=== PATIENT | male | born 1940 | race Caucasian/White ===

== ENCOUNTER 2017-04-18 01:00 | Inpatient (IN) | payer OTHER ==
[2017-04-18] MEDS ORDERED: NS 1,000 ML IV ONE (01:30)
--- NOTE | 2017-04-18 01:58 | CPEKG ---
Heart Rate: 55 RR Interval: 1091 P-R Interval: 184 QRSD Interval: 152 QT Interval: 468 QTC Interval: 448 P Apache: 63 QRS Apache: 123 T Wave Apache: 78 EKG Severity - ABNORMAL ECG - EKG Impression: SINUS RHYTHM EKG Impression: RBBB AND LPFB EKG Impression: INFERIOR INJURY, PROBABLE EARLY ACUTE INFARCT EKG Impression: PROBABLE LATERAL INFARCT, OLD Electronically Signed By: Jero Francisco 18-Apr-2017 02:11:00
[2017-04-18] MEDS ORDERED: ASPIRIN 81 MG CHEWABLE TAB ONE (02:01)
[2017-04-18] MEDS ORDERED: ASPIRIN 81 MG CHEWABLE TAB PO ONE (02:03)
--- NOTE | 2017-04-18 02:09 | EDPHY ---
H & P Stated Complaint: SUDDEN ONSET OF HEADACHE WOKE FROM SLEEP PAIN IN BETWEEN SHOULDER BLADES Time Seen by Provider: 04/18/17 01:15 HPI/ROS: Chief Complaint: Back pain HPI: 76-year-old male with a history of hyperlipidemia, right bundle branch block in the past woke at 11 o'clock with pain between his shoulder blades. Patient states this started with a little bit of the pain in his head and then went down with shoulder blades. Is about a 7/10. There are no aggravating or alleviating factors. He has not had similar pain in the past. States he has a little bit of discomfort in his chest. Does not hurt to breathe. No recent lifting or traumatic injuries. No fevers or chills. No cough. No shortness of breath. Is not described as tearing. It is dull in nature. ROS: 10 point Review of Systems is negative except as noted in the HPI. PMH: Hyperlipidemia, right bundle branch block Social History: No smoking Family History: non-contributory Physical Exam: Gen: Awake, Alert, No Distress HEENT: Nose: no rhinorrhea Eyes: PERRLA, EOMI Mouth: Moist mucosa Neck: Supple, no JVD Chest: nontender, lungs clear to auscultation Heart: S1, normal, fixed split S2, no murmur Abd: Soft, non-tender, no guarding Back: no CVA tenderness, no midline tenderness Ext: no edema, non-tender Skin: no rash Neuro: CN II-XII intact, Sensation grossly intact, Strength 5/5 in bilateral upper and lower extremities - Personal History Current Tetanus/Diphtheria Vaccine: Yes Current Tetanus Diphtheria and Acellular Pertussis (TDAP): Yes - Medical/Surgical History Hx Asthma: No Hx Chronic Respiratory Disease: No Hx Diabetes: No Hx Cardiac Disease: No Hx Renal Disease: No Hx Cirrhosis: No Hx Alcoholism: No Hx HIV/AIDS: No Hx Splenectomy or Spleen Trauma: No Other PMH: GERD, LOWER LUMBAR BACK SURGERY - Social History Smoking Status: Never smoked Constitutional: Initial Vital Signs Temperature (C) 36.8 C 04/18/17 01:09 Heart Rate 75 04/18/17 01:09 Respiratory Rate 18 04/18/17 01:09 Blood Pressure 135/86 H 04/18/17 01:09 O2 Sat (%) 96 04/18/17 01:09 O2 Delivery Mode Nasal Cannula O2 (L/minute) 2 Allergies/Adverse Reactions: SEASONAL Allergy (Mild, Uncoded 05/31/12 11:17) Other-Enter Comments Home Medications: Medication Instructions Recorded Omeprazole [Prilosec 10 mg] 10 mg PO DAILY PRN 06/01/12 Japanese Professor Completed 06/01/12 06/01/12 Simvastatin [Zocor 20 mg] 20 mg PO DAILY18 06/01/12 Medical Decision Making - Diagnostics EKG Interpretation: ECG time 1:56 a.m. sinus rhythm with a rate of 55, there is a right bundle- branch block and a left posterior fascicular block. Patient has ST elevations in leads 2, 3, and AVF approximately 1-2 mm. There are reciprocal ST depression in V2 and V3. This is consistent with acute inferior PR ED Course/Re-evaluation: 0200 ECG noted positive for inferior STEMI. I have called a cardiac alert. Patient has been given 325 mg of aspirin. He has received morphine. 0204 I have discussed with Dr. Young, cardiology. He is on his way in with plan to take the patient to the slab puller. 0235 patient is still complaining of pain. Dr. Young is at the bedside. Awaiting the cath team to take him to the slab puller for PTCA. 0243 patient to slab puller Critical Care Time: I spent a total of 40 minutes of critical care time in obtaining history, performing a physical exam, bedside monitoring of interventions, collecting and interpreting tests and discussion with consultants but not including time spent performing procedures. - Data Points Laboratory Results: Laboratory Results 04/18/17 01:51 04/18/17 01:51 04/18/17 04/18/17 01:51 01:51 WBC 6.63 10^3/uL 10^3/uL (3.80-9.50) RBC 4.49 10^6/uL 10^6/uL (4.40-6.38) Hgb 14.2 g/dL g/dL (13.7-17.5) Hct 41.0 % % (40.0-51.0) MCV 91.3 fL fL (81.5-99.8) MCH 31.6 pg pg (27.9-34.1) MCHC 34.6 g/dL g/dL (32.4-36.7) RDW 12.6 % % (11.5-15.2) Plt Count 158 10^3/uL 10^3/uL (150-400) MPV 10.9 fL fL (8.7-11.7) Neut % (Auto) 58.4 % % (39.3-74.2) Lymph % (Auto) 26.5 % % (15.0-45.0) Gaines % (Auto) 9.0 % % (4.5-13.0) Eos % (Auto) 4.7 % % (0.6-7.6) Baso % (Auto) 1.1 % % (0.3-1.7) Nucleat RBC Rel Count 0.0 % % (0.0-0.2) Absolute Neuts (auto) 3.87 10^3/uL 10^3/uL (1.70-6.50) Absolute Lymphs (auto) 1.76 10^3/uL 10^3/uL (1.00-3.00) Absolute Monos (auto) 0.60 10^3/uL 10^3/uL (0.30-0.80) Absolute Eos (auto) 0.31 10^3/uL 10^3/uL (0.03-0.40) Absolute Basos (auto) 0.07 10^3/uL 10^3/uL (0.02-0.10) Absolute Nucleated RBC 0.00 10^3/uL 10^3/uL (0-0.01) Immature Gran % 0.3 % % (0.0-1.1) Immature Gran # 0.02 10^3/uL 10^3/uL (0.00-0.10) Sodium 141 mEq/L mEq/L (134-144) Potassium 4.0 mEq/L mEq/L (3.5-5.2) Chloride 105 mEq/L mEq/L (97-110) Carbon Dioxide 26 mEq/l mEq/l (22-31) Anion Gap 10 mEq/L mEq/L (8-16) BUN 32 mg/dL H mg/dL (7-23) Creatinine 1.2 mg/dL mg/dL (0.7-1.3) Estimated GFR 59 Glucose 102 mg/dL H mg/dL (70-100) Calcium 9.6 mg/dL mg/dL (8.5-10.4) Troponin I 0.093 ng/mL H ng/mL (0.000-0.034) Medications Given: Discontinued Medications Aspirin (Aspirin) 324 mg PO EDNOW ONE Stop: 04/18/17 02:04 Last Admin: 04/18/17 02:03 Dose: 324 mg Sodium Chloride (Ns) 1,000 mls @ 0 mls/hr IV ONCE ONE; Wide Open PRN Reason: Protocol Stop: 04/18/17 01:31 Last Admin: 04/18/17 01:47 Dose: 1,000 mls Morphine Sulfate (Morphine) 4 mg IVP ONCE ONE Stop: 04/18/17 01:31 Last Admin: 04/18/17 01:47 Dose: 4 mg Morphine Sulfate (Morphine) 4 mg IVP EDNOW ONE Stop: 04/18/17 02:18 Last Admin: 04/18/17 02:17 Dose: 4 mg Departure - Departure Disposition: To OP Cath/Surgery Clinical Impression: STEMI (ST elevation myocardial infarction) Condition: Serious Referrals: Rick Ritter MD [Primary Care Provider] - As per Instructions
[2017-04-18 02:13] LABS: % IMMATURE GRANULYOCYTES 0.3 % (0.0-1.1); ABSOLUTE IMMATURE GRANULOCYTES 0.02 10^3/uL (0.00-0.10); ADD DIFF? NO; ADD MORPH? NO; ADD SCAN? NO; ATYPICAL LYMPHOCYTE FLAG 0 (0-99); FRAGMENT RBC FLAG 0 (0-99); HEMOGLOBIN 14.2 g/dL (13.7-17.5); LEFT SHIFT FLG 0 (0-99); LIPEMIA HEMOLYSIS FLAG 90 (0-99); MEAN CELL HEMOGLOBIN 31.6 pg (27.9-34.1); MEAN CELL HEMOGLOBIN CONCENTR. 34.6 g/dL (32.4-36.7); MEAN CELL VOLUME 91.3 fL (81.5-99.8); MEAN PLATELET VOLUME 10.9 fL (8.7-11.7); PLATELET CLUMPS FLAG 20 (0-99); PLATELET COUNT 158 10^3/uL (150-400); RED BLOOD CELL COUNT 4.49 10^6/uL (4.40-6.38); RED CELL DISTRIBUTION WIDTH 12.6 % (11.5-15.2)
[2017-04-18 02:28] LABS: ANION GAP 10 mEq/L (8-16); CALCIUM 9.6 mg/dL (8.5-10.4); CARBON DIOXIDE 26 mEq/l (22-31); CHLORIDE 105 mEq/L (97-110); CREATININE 1.2 mg/dL (0.7-1.3); GLOMERULAR FILTRATION RATE 59; GLUCOSE 102 mg/dL (70-100); SODIUM 141 mEq/L (134-144)
[2017-04-18] MEDS ORDERED: MIDAZOLAM 2 MG/2 ML VIAL ONE (02:28)
[2017-04-18] MEDS ORDERED: fentaNYL 100 MCG/2 ML INJ ONE (02:28)
[2017-04-18] MEDS ORDERED: LIDOCAINE 1% 300 MG/30 ML SDV ONE (02:28)
[2017-04-18] MEDS ORDERED: IOPAMIDOL (ISOVUE-370) 150 ML BTL IV ONE ×2 (02:29→03:15)
[2017-04-18] MEDS ORDERED: BIVALIRUDIN 250 MG/5 ML VIAL IV ONE (02:29)
[2017-04-18] MEDS ORDERED: IOPAMIDOL (ISOVUE 370) 100 ML BTL IV ONE (02:32)
[2017-04-18 02:39] LABS: TROPONIN I 0.093 ng/mL (0.000-0.034)
[2017-04-18] MEDS ORDERED: ATROPINE SULFATE 1 MG/10 ML SYR ONE (03:09)
[2017-04-18] MEDS ORDERED: NITROGLYCERIN 1,500 MCG/15 ML VIAL MISC ONE (03:17)
[2017-04-18] MEDS ORDERED: CLOPIDOGREL BISULFATE 75 MG TAB ONE (03:47)
[2017-04-18] MEDS ORDERED: ATROPINE SULFATE 1 MG/10 ML SYR IVP PRN (04:02)
[2017-04-18] MEDS ORDERED: CLOPIDOGREL BISULFATE 75 MG TAB PO ONE (04:02)
[2017-04-18] MEDS ORDERED: ONDANSETRON 4 MG/2 ML VIAL IVP PRN (04:02)
[2017-04-18] MEDS ORDERED: TEMAZEPAM 15 MG CAP PO PRN (04:02)
[2017-04-18] MEDS ORDERED: LORazepam 2 MG/ML INJ IVP PRN (04:02)
[2017-04-18] MEDS ORDERED: FAMOTIDINE 20 MG/NACL/50 ML BAG IV ONE (04:14)
[2017-04-18 04:27] LABS: ALBUMIN 3.9 g/dL (3.5-5.0); BILIRUBIN,TOTAL 0.4 mg/dL (0.1-1.4); BILIRUBIN-CONJUGATED 0.4 mg/dL (0.0-0.5); TOTAL PROTEIN 6.3 g/dL (6.3-8.2)
--- NOTE | 2017-04-18 04:32 | GCON ---
[f rep st] CONSULTATION DATE OF CONSULTATION: 04/18/2017 CHIEF COMPLAINT: We have been asked by the emergency department to evaluate Mr. Ocampo with a chief c omplaint of chest pain. HISTORY OF PRESENT ILLNESS: Mr. Ocampo is a 76-year-old gentleman with risk factors including age and hyperlipidemia, who presents with a chief complaint of chest pain. The patient was in his usual sta te of health until 10 p.m. the evening of admission, when he began to experience chest pain. Chest p ain was described as an ache between his shoulder blades. The chest pain did not radiate and was not associated with nausea, vomiting, or diaphoresis. Patient initially tried to go to bed to see if hi s symptoms would improve but awoke at approximately 11 p.m. with continued symptoms of chest pain. Alexey gracia ended up taking an antireflux medication, as well as medicine he takes for leg cramps, without impr ovement in his symptoms. When his symptoms did not resolve, he presented to the emergency department for further evaluation. In the emergency department, he had an EKG performed, demonstrating inferio r ST-segment elevation. We were consulted to help in the further management of this patient. Jose Armando telles denies a previous history of coronary artery disease. He denies previous anginal-type symptoms. T here is no history of palpitations, orthopnea, or PND. PAST MEDICAL HISTORY: 1. Hyperlipidemia. 2. Gastroesophageal reflux disease. 3. Lumbosacral stenosis. 4. Benign prostatic hypertrophy. MEDICATIONS: Please see medicine reconciliation form. ALLERGIES: No known drug allergies. SOCIAL HISTORY: Patient lives with his . He does not smoke. He denies problems with alcohol. FAMILY HISTORY: Negative for early onset of coronary artery disease. REVIEW OF SYSTEMS: Ten-point review of systems is negative, except as noted in HPI. PHYSICAL EXAMINATION: GENERAL: The patient is resting in bed. He appears to be in moderate distres s. VITAL SIGNS: Temperature is afebrile, pulse is 58, blood pressure is 130/87, respiratory rate is 20, SaO2 is 96% on 2 L nasal cannula. HEENT: Normocephalic, atraumatic. Extraocular muscles intac t. NECK: No JVD. No bruits. LUNGS: Clear to auscultation bilaterally. CARDIOVASCULAR: Regular rate and rhythm. S1, S2. Grade 2/6 holosystolic murmur is noted at the left sternal border. ABDOME N: Obese, nontender. Normoactive bowel sounds. EXTREMITIES: No clubbing, cyanosis, or edema. SHASHANK RO: Patient is awake, alert, and oriented x3. The remainder of the physical exam was abbreviated se condary to acute nature of the patient's illness. LABORATORY: White blood cell count is 6.63, hemoglobin 14.2, hematocrit 41.0, platelet count 158. S odium 141, potassium 4.0, chloride 105, CO2 26, BUN 32, creatinine 1.2. Troponin 0.093. EKG demonst rates sinus rhythm with a right bundle branch block morphology, inferior ST-segment elevation with ri ghtward axis; intervals within normal limits. ASSESSMENT AND PLAN: Mr. Ocampo is a 76-year-old gentleman, who presents with an acute inferior ST-se gment-elevation myocardial infarction. Reviewed risks and benefits of cardiac catheterization with alisa gasca and his . Will arrange to have this performed emergently. /[id number]/MODL
--- NOTE | 2017-04-18 05:25 | CPEKG ---
Heart Rate: 62 RR Interval: 968 P-R Interval: 192 QRSD Interval: 150 QT Interval: 476 QTC Interval: 484 P Belmont: 76 QRS [place]: 125 T Wave [place]: -35 EKG Severity - ABNORMAL ECG - EKG Impression: SINUS RHYTHM EKG Impression: RBBB AND LPFB EKG Impression: LATERAL INFARCT, OLD EKG Impression: PRIOR ECG FROM EARLIER IN THE DAY WITH ACUTE ST ELEVATION TO THE INFERIOR LEADS Electronically Signed By: Colin Freeman 18-Apr-2017 08:31:30
[2017-04-18 06:04] LABS: % IMMATURE GRANULYOCYTES 0.4 % (0.0-1.1); ABSOLUTE IMMATURE GRANULOCYTES 0.03 10^3/uL (0.00-0.10); ADD DIFF? NO; ADD MORPH? NO; ADD SCAN? NO; ATYPICAL LYMPHOCYTE FLAG 0 (0-99); FRAGMENT RBC FLAG 0 (0-99); HEMATOCRIT 35.9 % (40.0-51.0); HEMOGLOBIN 12.2 g/dL (13.7-17.5); LEFT SHIFT FLG 0 (0-99); LIPEMIA HEMOLYSIS FLAG 90 (0-99); MEAN CELL HEMOGLOBIN 31.4 pg (27.9-34.1); MEAN CELL VOLUME 92.5 fL (81.5-99.8); MEAN PLATELET VOLUME 10.7 fL (8.7-11.7); PLATELET CLUMPS FLAG 0 (0-99); PLATELET COUNT 126 10^3/uL (150-400); RED BLOOD CELL COUNT 3.88 10^6/uL (4.40-6.38); RED CELL DISTRIBUTION WIDTH 12.8 % (11.5-15.2)
[2017-04-18 06:18] LABS: ANION GAP 6 mEq/L (8-16); CALCIUM 7.7 mg/dL (8.5-10.4); CARBON DIOXIDE 22 mEq/l (22-31); CHLORIDE 111 mEq/L (97-110); CHOLESTEROL 128 mg/dL (140-220); CREATININE 0.9 mg/dL (0.7-1.3); GLOMERULAR FILTRATION RATE > 60; GLUCOSE 94 mg/dL (70-100); HIGH DENSITY LIPOPROTEIN 32 mg/dL (40-65); LDL/HDL RATIO 2.56 RATIO (1.00-3.64); LOW DENSITY LIPOPROTEIN 82 mg/dL (80-100); NON-HIGH DENSITY LIPOPROTEIN 96 mg/dL (90-129); POTASSIUM 4.1 mEq/L (3.5-5.2); SODIUM 139 mEq/L (134-144); TRIGLYCERIDE 71 mg/dL (40-150); VERY LOW DENSITY LIPOPROTEINS 14 mg/dL (8-25)
[2017-04-18 06:54] LABS: CK-MB INTERPRETATION POSITIVE (NEGATIVE)
--- NOTE | 2017-04-18 07:12 | CPIP ---
[f rep st] INVASIVE CARDIAC PROCEDURE DATE OF PROCEDURE: 04/18/2017 PROCEDURE PERFORMED: 1. Coronary angiography. 2. Left ventriculography. 3. Stenting of right coronary artery with Synergy drug-eluting stent. 4. Intravascular ultrasound of the left main coronary artery. INDICATION: The patient presented with an acute inferior ST-segment elevation myocardial infarction. There was a delay in the door to balloon time as patient was initially being worked up as an aortic dissection. ACCESS: Patient was prepped and draped in sterile fashion. 1% lidocaine was used to anesthetize the right inguinal region. A 6-Haitian introducer sheath was placed selectively into the right common fe moral artery via modified Seldinger technique. CORONARY ANGIOGRAPHY: A 6-Haitian JL4 was advanced to the left main coronary artery and images obtain ed. The 6-Haitian JL4 did not engage the left main coronary artery well and was exchanged for a 6-[facility] JL 3.5 catheter. The left main coronary artery bifurcated into an LAD and circumflex coronary ar teries. The left main coronary artery was long. In the proximal segment of the left main coronary a rtery, there appeared to be an eccentric segmental 50% to 60% stenosis present. This was only apprec iated in the cranial views. In the caudal views no significant stenosis was appreciated. The left a nterior descending coronary artery had mild diffuse disease throughout. There was no stenosis greate r than 20%. The left anterior descending coronary artery gave rise to 1 prominent diagonal branch. The diagonal branch was large. The diagonal branch had a proximal 30% stenosis present. The circumf jennifer coronary artery was small. The circumflex coronary artery had a proximal 30% stenosis present. A 6-Haitian JR4 was advanced to the right coronary artery and images obtained. The right coronary art tiffany is large. The right coronary artery had mild diffuse disease throughout. In the mid vessel, the re was a single discrete 30% stenosis present. In the distal vessel at the take-off of the posterior lateral branch, there was a single discrete 100% occlusion. LEFT VENTRICULOGRAPHY: A 6-Haitian pigtail catheter was advanced in the left ventricle and images obt ained. Left ventricle was normal in size with mildly reduced systolic function. Estimated ejection fraction was 55%. The inferobasilar segment appeared to be hypokinetic. PERCUTANEOUS CORONARY INTERVENTION OF THE RIGHT CORONARY ARTERY: A 6-Haitian JR4 was advanced to the right coronary artery and images obtained. A Luge wire was placed in the distal vessel and position verified by angiography. A 3.0 x 15 Emerge balloon was used to pre-dilate the distal lesion. Follow up angiography demonstrated ABBY-3 flow with significant residual stenosis. A 3.0 x 20 Synergy drug- eluting stent was then placed across the lesion and deployed. Followup angiography demonstrated ABBY 3 flow. No residual stenosis. INTRAVASCULAR ULTRASOUND OF THE LEFT MAIN CORONARY ARTERY: A 6-Haitian JL 3.5 catheter was advanced t o the left main coronary artery and images obtained. Angiography confirmed the presence of an eccent austen lesion that was most prominent in the cranial views. A Luge wire was placed in the left anterior descending coronary artery and position verified by angiography. Intravascular ultrasound probe was advanced and images obtained. The left main coronary artery had mild plaque burden but was not sign ificantly narrowed. The degree of stenosis was mostly secondary to eccentricity of the blood vessel. COMPLICATIONS: None. CONCLUSIONS: 1. Single-vessel coronary artery disease. 2. Mildly reduced left ventricular systolic function with an estimated ejection fraction of 55% and inferior basilar hypokinesis. 3. Status post successful stenting of the right coronary artery with Synergy drug-eluting stents. /[id number]/MODL
--- NOTE | 2017-04-18 09:24 | CPEKG ---
Heart Rate: 78 RR Interval: 769 P-R Interval: 172 QRSD Interval: 150 QT Interval: 480 QTC Interval: 547 P Sunburst: 0 QRS Sunburst: 117 T Wave Sunburst: -41 EKG Severity - ABNORMAL ECG - EKG Impression: SINUS RHYTHM EKG Impression: VENTRICULAR PREMATURE COMPLEX EKG Impression: RBBB AND LPFB Electronically Signed By: Colin Freeman 18-Apr-2017 09:58:32
[2017-04-18] MEDS: NITROGLYCERIN 0.4 MG BTL SL PRN ×2 (09:25→13:30)
--- NOTE | 2017-04-18 09:54 | SOAPPROG ---
SOAP Progress Note Assessment/Plan: IMI - Pt presented with an acute inferior STEMI. He was treated with PCI of his distal RCA. EF = 55%. CPK increasing at this time. + AIVR, Continued low level chest pain. No CHF. --> Continue asa, plavix, coreg, and lipitor. --> Repeat biomarkers --> Echocardiogram in am 2. Hyperlipidemia - LDL = 86 on simvastatin. Pt started on lipitor at admit. --> FLP and LFTs in 3 months. 3. HTN - BP well controlled with low dose coreg. Subjective: + low level back pain this am. EKG wiht out acute ST changes Telemetry with AIVR No orthopnea or PND limited ambulation Objective: Vital Signs Temp Pulse Resp BP Pulse Ox 37 C 60 17 109/52 L 95 04/18/17 08:00 04/18/17 09:27 04/18/17 09:27 04/18/17 09:27 04/18/17 09:27 Laboratory Results 04/18/17 05:55 04/18/17 05:55 04/17/17 04/18/17 04/19/17 05:59 05:59 05:59 Intake Total 1000 Output Total 300 Balance 700 Physical Exam - Physical Exam General Appearance: alert, no apparent distress Respiratory: lungs clear Cardiac/Chest: regular rate, rhythm Skin: normal color Extremities: other (No hematoma or echymosis. 2+ DP and PT on R), No pedal edema Neuro/Psych: alert, oriented x 3 ICD10 Worksheet Patient Problems: Problems Problem Status Onset STEMI (ST elevation myocardial infarction) Acute
[2017-04-18] MEDS: ATORVASTATIN CALCIUM 40 MG TAB PO SCH (10:15)
[2017-04-18] MEDS: CARVEDILOL 3.125 MG TAB PO SCH ×2 (10:16→18:13)
[2017-04-18] MEDS: PANTOPRAZOLE SODIUM 40 MG TAB PO SCH (10:16)
[2017-04-18] MEDS: ASPIRIN EC 325 MG TAB PO SCH (10:16)
[2017-04-18] MEDS: TAMSULOSIN HCL 0.4 MG CAP PO SCH (10:16)
--- NOTE | 2017-04-18 13:29 | GCON ---
[f rep st] CONSULTATION PULMONARY/CRITICAL CARE CONSULTATION DATE OF CONSULTATION: 04/18/2017 REFERRING PHYSICIAN: Colin Young MD REASON FOR REFERRAL: Evaluation and management of anemia and snoring, possible sleep apnea. HISTORY: The patient is a 76-year-old gentleman with no prior cardiac history, who was admitted to [facility] this morning with chest pain. The chest pain started about 10 o'clock last night and was in the middle of his chest. There was no radiation, nausea, vomiting or diaphoresis. He tried to g o to sleep, but then woke up at 11 o'clock with ongoing chest pain. It did not respond to an anti-re flux medication, so he presented to the emergency department, where he was found to have inferior ST- segment elevation. He was taken to catheterization lab, where he had a 100% distal right coronary ar jamaal occlusion that was stented. He also had a 50% to 60% stenosis of the left main coronary artery, for which no intervention was performed. After intracoronary ultrasound demonstrated that the steno sis was largely due to an eccentric plaque. The patient had a brief episode of chest pain this morni ng, several hours after the procedure, which resolved promptly after a single nitroglycerin. He has had no more chest pain. He denies shortness of breath. His reports a history of intermittent s noring, but denies witnessed apneas. He usually feels refreshed after 5-6 hours of sleep at night, b ut also takes 30-60 minute nap daily. 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 PAST MEDICAL HISTORY: 1. Hyperlipidemia. 2. Gastroesophageal reflux. 3. Lumbosacral stenosis. 4. BPH. MEDICATIONS: At the time of admission include simvastatin, aspirin, tamsulosin, and omeprazole. ALLERGIES: No known drug allergies. 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 He has never smoked and denies exc essive alcohol use. FAMILY HISTORY: Unremarkable. REVIEW OF SYSTEMS: A 10-point review of systems adds nothing to the history of present illness. PHYSICAL EXAMINATION: GENERAL: The patient is awake, alert, and in no acute distress. VITAL SIGNS: Blood pressure is 109/61, with a heart rate of 54, he is afebrile. Oxygen saturations are 96% on r oom air. HEENT: Normocephalic, atraumatic. No icterus. NECK: No JVD. Trachea is midline. CHEST : Clear to auscultation. CARDIAC: Regular rate and rhythm without murmur. ABDOMEN: Soft, nontend er. Bowel sounds are present. EXTREMITIES: No clubbing, cyanosis, or edema. NEURO: The patient i s awake and alert. There are no gross motor or sensory deficits. LABORATORY: Hemoglobin is 12.2, down from 14.2. An MCV is 92.5. Platelet count is 126. Chemistry group is unremarkable. CK is 499, with 12.5% MB fraction. Troponin is 10.5, and HDL ghassan sterol is 32, with an LDL of 82. A chest x-ray shows some basilar atelectasis. Images reviewed. ASSESSMENT: 1. Acute myocardial infarction, due to the right coronary artery occlusion, treated with stent and r esolution of obstruction. The patient had a brief episode of chest pain this morning, but this resol jay with a single nitroglycerin, and he has had no further signs/symptoms of coronary artery disease. 2. Anemia. The patient has some mild anemia at postprocedure, which is likely due to dilution and m inimal blood loss. 3. Possible obstructive sleep apnea. The patient has snoring, as well as daytime napping, in additi on to male sex, and obesity. Given his history of coronary artery disease, he is at some risk of unt reated sleep apnea, which could further increase his risk of more cardiac events. He is somewhat res istant to the idea that he has sleep apnea and further testing. RECOMMENDATIONS: 1. Follow hemoglobin. 2. Okay to transfer to the floor once approved by Dr. Young. He will remain in the ICU given his e pisode of chest pain this morning and increased troponins on the last measurement. 3. I would recommend starting with an overnight oximetry as an outpatient in a few weeks. If this d emonstrates significant desaturations, a formal sleep study should be performed. /[id number]/MODL
[2017-04-18] MEDS ORDERED: PROTOCOL MAGNESIUM 1 DOSE IV PRN (14:36)
[2017-04-18] MEDS ORDERED: MAGNESIUM SULF 1 GM/DEXTROSE 100 ML IV ONE (14:43)
[2017-04-18 16:27] LABS: CK-MB INTERPRETATION POSITIVE (NEGATIVE)
[2017-04-18] MEDS ORDERED: BISMUTH SUBSALICYLATE 262 MG CHEWABLE TAB PO PRN (19:33)
[2017-04-19 04:30] LABS: % IMMATURE GRANULYOCYTES 0.3 % (0.0-1.1); ABSOLUTE IMMATURE GRANULOCYTES 0.02 10^3/uL (0.00-0.10); ADD DIFF? NO; ADD MORPH? NO; ADD SCAN? NO; ATYPICAL LYMPHOCYTE FLAG 10 (0-99); FRAGMENT RBC FLAG 0 (0-99); HEMATOCRIT 37.1 % (40.0-51.0); HEMOGLOBIN 12.7 g/dL (13.7-17.5); LEFT SHIFT FLG 0 (0-99); LIPEMIA HEMOLYSIS FLAG 90 (0-99); MEAN CELL HEMOGLOBIN 31.4 pg (27.9-34.1); MEAN CELL HEMOGLOBIN CONCENTR. 34.2 g/dL (32.4-36.7); MEAN CELL VOLUME 91.6 fL (81.5-99.8); MEAN PLATELET VOLUME 10.7 fL (8.7-11.7); PLATELET CLUMPS FLAG 0 (0-99); PLATELET COUNT 129 10^3/uL (150-400); RED BLOOD CELL COUNT 4.05 10^6/uL (4.40-6.38); RED CELL DISTRIBUTION WIDTH 12.7 % (11.5-15.2)
[2017-04-19 04:51] LABS: ANION GAP 6 mEq/L (8-16); CALCIUM 9.2 mg/dL (8.5-10.4); CARBON DIOXIDE 25 mEq/l (22-31); CHLORIDE 105 mEq/L (97-110); CREATININE 1.1 mg/dL (0.7-1.3); GLOMERULAR FILTRATION RATE > 60; GLUCOSE 91 mg/dL (70-100); SODIUM 136 mEq/L (134-144)
[2017-04-19 05:33] LABS: CK-MB INTERPRETATION POSITIVE (NEGATIVE)
[2017-04-19] MEDS ORDERED: PANTOPRAZOLE SODIUM 40 MG TAB PO SCH (09:00)
[2017-04-19] MEDS ORDERED: TAMSULOSIN HCL 0.4 MG CAP PO SCH (09:00)
[2017-04-19] MEDS: ATORVASTATIN CALCIUM 40 MG TAB PO SCH (09:41)
[2017-04-19] MEDS: CLOPIDOGREL BISULFATE 75 MG TAB PO SCH (09:42)
[2017-04-19] MEDS: TAMSULOSIN HCL 0.4 MG CAP PO SCH (09:42)
[2017-04-19] MEDS: CARVEDILOL 3.125 MG TAB PO SCH ×2 (09:42→18:40)
[2017-04-19] MEDS: PANTOPRAZOLE SODIUM 40 MG TAB PO SCH (09:42)
[2017-04-19] MEDS: ASPIRIN EC 325 MG TAB PO SCH (09:43)
--- NOTE | 2017-04-19 11:02 | ECHO ---
[email or web address] [address] [address] Main: [phone] Fax: Transthoracic Echocardiogram Name: QUOC LYNCH MR#: [id number] Study Date: 04/19/2017 Study Time: 08:22 AM Date of : 1940 Age: 76 year(s) Height: 182.9 cm (72 in.) Weight: 99.79 kg (220 lb.) BSA: 2.22 m2 Gender: Male Examination: Echo Indication: S/P posterior WA/stent Image Quality: Adequate Contrast: Requested by: Colin Jung BP: 121 mmHg/60 mmHg Heart Rate: 67 bpm Rhythm: Normal sinus rhythm Indication: S/P posterior WA/stent Procedure Staff Ingredient Specialist: Caitlin Brothers Reading Physician: Colin Jung Requesting Provider: Conclusions: Normal size left ventricle. Moderate concentric LV hypertrophy. Normal global systolic LV function. EF is 59 %. Normal size right ventricle. Mildly concentric RV hypertrophy. There is mild thickening of the mitral valve leaflets. Moderate mitral valve regurgitation is present. The aortic valve is normal in appearance. Trivial to mild aortic valve regurgitation. The pulmonary artery pressure is mild to moderately increased. Measurements: Chambers Valvular Assessment AV/MV Valvular Assessment TV/PV Normal Normal Normal Name Value Range Name Value Range Name Value Range Ao Lisa (MM): 3.1 cm (2.2 cm-3.7 AV Vmax: 1.20 m/s (1 m/s-1.7 TR Vmax: 2.97 mm/s ( - ) cm) m/s) TR PGmax: 35 mmHg ( - ) IVSd (2D): 1.4 cm (0.6 cm-1.1 AV maxP mmHg ( - ) syst. PAP: 45 mmHg ( - ) cm) LVOT Vmax: 0.87 m/s (0.7 m/s-1.1 PV Vmax: 0.92 m/s (0.6 m/s-0.9 LVDd (2D): 4.7 cm (4.2 cm-5.9 m/s) m/s) cm) MV E Vmax: 0.48 m/s ( - ) PV PGmax: 3 mmHg ( - ) LVDs (2D): 3.4 cm (2.1 cm-4 MV A Vmax: 0.18 m/s ( - ) cm) MV E/A: 2.67 ( - ) LVPWd (2D): 1.4 cm (0.6 cm-1 cm) LVEF (BP): 59 % (>=55 %) RVDd(2D): 3.9 cm (1.9 cm-3.8 cmmm) Patient: QUOC LYNCH Study Date: 04/19/2017 Page 1 of 2 08:22 AM Continued Measurements: Chambers Valvular Assessment AV/MV Valvular Assessment TV/PV Name Value Name Value Name Value LADs: 4.9 cm MV DecTime: 352 m/s CVP (est.): 10 mmHg LADs Lon.1 cm MV E/E' Septal: 15.40 LA Area: 22.3 cm2 MV E/E' Lateral: 13.40 LA Volume: 72 ml LA Volume Index: 32.4 ml/m2 RA Area: 16.7 cm2 Additional Vessels Name Value Ao Ascendin.7 cm Findings: Left Ventricle: Normal size left ventricle. Moderate concentric LV hypertrophy. Normal global systolic LV function. EF is 59 %. No regional wall motion abnormality. Right Ventricle: Normal size right ventricle. Mildly concentric RV hypertrophy. Normal RV function. Left Atrium: The left atirum is borderline dilated. Right Atrium: The right atrium is borderline dilated. Mitral Valve: There is mild thickening of the mitral valve leaflets. Moderate mitral valve regurgitation is present. Aortic Valve: The aortic valve is normal in appearance. Trivial to mild aortic valve regurgitation. Tricuspid Valve: The tricuspid valve is normal in appearance and function. Mild tricuspid regurgitation is present. The pulmonary artery pressure is mild to moderately increased. Pulmonic Valve: The pulmonic valve is normal in appearance and function. Aorta: The aorta is normal. IVC: The IVC is mildly dilated. Pericardium: No pericardial effusion. (No Signature Object) Patient: QUOC LYNCH Study Date: 04/19/2017 Page 2 of 2 08:22 AM [id number]
--- NOTE | 2017-04-19 11:26 | SOAPPROG ---
[facility] Progress Note Assessment/Plan: IMI - Pt presented with an acute inferior STEMI. He was treated with PCI of his distal RCA. EF = 55%. Peak CPK 964. No angina or CHF. Ventricular arrhythmias improved overnight. --> Continue asa, plavix, coreg, and lipitor. 2. Hyperlipidemia - LDL = 82 on simvastatin. Pt started on lipitor at admit. --> FLP and LFTs in 3 months. 3. HTN - BP well controlled with low dose coreg. 04/19/17 11:24 Subjective: No chest pain No orthopnea or PND + gastritis pain on 04/18. Objective: Vital Signs Temp Pulse Resp BP Pulse Ox 36.8 C 62 22 H 132/58 H 99 04/19/17 09:59 04/19/17 09:59 04/19/17 09:59 04/19/17 09:59 04/19/17 09:59 Laboratory Results 04/19/17 04:05 04/19/17 04:05 04/18/17 04/19/17 04/20/17 05:59 05:59 05:59 Intake Total 1000 1220 Output Total 300 450 Balance 700 770 Physical Exam - Physical Exam General Appearance: alert, no apparent distress Respiratory: lungs clear Cardiac/Chest: regular rate, rhythm Abdomen: normal bowel sounds, non-tender, soft Skin: normal color Extremities: other (No hematoma or echymosis.), No pedal edema Neuro/Psych: alert, oriented x 3 ICD10 Worksheet Patient Problems: Problems Problem Status Onset STEMI (ST elevation myocardial infarction) Acute
[2017-04-19] MEDS: diphenhydrAMINE 25 MG CAP PO PRN ×2 (12:12→21:54)
--- NOTE | 2017-04-19 16:22 | ASMTCMCOM ---
CM Note CM Note Notes: 76 year old male admitted for an acute FL, went to the lab specialist for a stent. Has a hx of HLD, GERD, BPH Lumbosacral stenosis. No discharge needs anticipated. Patient will return home with his . Date Signed: 04/19/2017 04:22 PM Electronically Signed By:Feli Black LCSW
[2017-04-20] MEDS: CARVEDILOL 3.125 MG TAB PO SCH (08:17)
[2017-04-20] MEDS: ASPIRIN EC 325 MG TAB PO SCH (08:17)
[2017-04-20] MEDS: ATORVASTATIN CALCIUM 40 MG TAB PO SCH (08:17)
[2017-04-20] MEDS: CLOPIDOGREL BISULFATE 75 MG TAB PO SCH (08:17)
[2017-04-20] MEDS: diphenhydrAMINE 25 MG CAP PO PRN (08:18)
[2017-04-20] MEDS: TAMSULOSIN HCL 0.4 MG CAP PO SCH (08:18)
[2017-04-20] MEDS: PANTOPRAZOLE SODIUM 40 MG TAB PO SCH (08:18)
[2017-04-20 08:39] VITALS: BP 110/64; PULSE 77; RESP 13; TEMP 99.3; O2SAT 92
[2017-04-20] MEDS ORDERED: MAGNESIUM SULF 1 GM/DEXTROSE 100 ML IV ONE (09:10)
--- NOTE | 2017-04-20 12:43 | GDS ---
[f rep st] DISCHARGE SUMMARY SUPERVISING [employer]ARNING [employer]AT[employer] MANAGER: Katerina Lopez MD. ADMISSION DIAGNOSES: 1. Chest pressure. 2. ST-elevation myocardial infarction. 3. Hyperlipidemia. 4. Gastroesophageal reflux disease. 5. Lumbosacral stenosis. 6. Benign prostatic hypertrophy. DISCHARGE DIAGNOSES: 1. ST-elevation myocardial infarction. 2. Coronary artery disease. 3. Status post percutaneous coronary intervention with 3.0 x 20 drug-eluting stent implantation into the posterior lateral branch. 4. Hyperlipidemia. 5. Gastroesophageal reflux disease. 6. Lumbosacral stenosis. 7. Benign prostatic hypertrophy. PROCEDURES DONE DURING HOSPITALIZATION: 1. Chest x-ray. 2. Electrocardiogram. 3. Diagnostic cardiac catheterization. 4. Percutaneous coronary intervention with 3.0 x 20 TRISTON implantation into posterior lateral branch. 5. Echocardiogram. BRIEF HISTORY: Please see history and physical. 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 This conc erned him significantly that he came to [facility] emergency department for further agustin luation. HOSPITAL COURSE: Upon arrival to the ED, initial electrocardiogram was done, which showed inferior S T elevation. Cardiac alert was called, and patient was taken emergently to the cardiac catheterizati on lab by Dr. Young. There he performed a diagnostic heart catheterization on the patient, which sh owed left main artery had what appeared to be an eccentric 50% to 60% stenosis appreciated, the LAD h ad mild diffuse disease throughout, but no stenosis greater than 20%, the circumflex artery was small with a proximal stenosis of 30%, but no flow-limiting disease. Right coronary artery shot was then taken, which showed mild diffuse throughout, and just distal of the posterior lateral branch takeoff from the RCA was noted to have 100% occluded artery. LV gram was done, which estimated EF of 55% wit h inferior basal segment hypokinesis. At that time, percutaneous coronary intervention was done, a 3 .0 x 20 Synergy stent was successfully implanted into the DARIAN branch, restoring flow with ABBY-3 flow . At that point, guides were changed out, and intravascular ultrasound of the left main was done sean wing mild plaque burden, but no significant narrowing that would suggest flow limitation. Procedure was stopped at that time, no complications. Patient was taken to the intensive care unit for evaluat ion. Patient was noted to have occasional ventricular arrhythmia post percutaneous intervention, he was started on low-dose beta-blockage, which resolved arrhythmia. He remained asymptomatic all throu ghout the . He did undergo echocardiogram on the , which showed mild concentric LVH, normal global systolic LV systolic function with EF of 59%, mild concentric RVH, moderate MR, trivial to mil d AI, with mildly elevated pulmonary pressures. Ultimately on the , [facility]. Overnight he has remained in sinus rhythm. He has been noted to h ave rare premature ventricular contractions, but no other malignant arrhythmias. His blood pressure has been borderline low side with systolic blood pressures in the low 100s. He denies any further ep isodes of chest pressure or pain, back pain, or shortness of breath. He has been up and walking the unit without difficulties. PHYSICAL EXAMINATION: Done today: GENERAL APPEARANCE: Medium built, mildly obese male. He is alert and oriented to person, place, time, and situation. Appears to be in no acute distress. VITAL SIGNS: Current vital signs are blood pressure of 110/64, heart rate of 77 sinus rhythm on the monitor. Respirations 13, saturating 92% on room air. Temperature 37.4 degrees Celsius. HEENT: H ead is normocephalic. Lips and tongue are pink and moist with no signs of cyanosis. Conjunctivae pi nk. NECK: Trachea is midline, +2 carotid pulses bilateral. No auscultated bruits. No jugular vein distention. RESPIRATORY: Lungs clear to auscultation. No rhonchi, rales or wheezes. No accessory muscle use, no intercostal muscle retraction noted. CARDIAC: Regular rate, regular rhythm, S1, S2, 1/6 to 2/6 systolic murmur in left sternal border. A BDOMEN: Soft, nontender. Bowel sounds x4 quadrants. No organomegaly. No palpable masses. SKIN: [place], warm, dry, no cyanosis, no clubbing, no peripheral edema. VASCULAR: +2 carotids bilateral, +2 radials bilateral, +1 dorsal pedal and posterior tibial pulses bilateral. RIGHT GROIN SITE: Cathet er insertion site with no redness, swelling, drainage, ecchymosis, or hematoma, no auscultated bruit. LABORATORY STUDIES: Laboratory studies drawn on the show WBC of 6.4, hemoglobin of 12.7, hemato crit of 37.1, platelet count of 129. Sodium of 136, potassium 4.0, chloride 105, CO2 is 25, BUN 24, creatinine 1.1, glucose 91, calcium 9. 2, magnesium 2.0. Patient on the did peak troponins up to 30.60. CK-MB fraction peaked at 129 on the with a percentage of 3.4. On the , troponin on a downward decline at 23, CK-MB fraction 55 with percent age of 10.0. Fasting lipid panel done on the morning of the showed triglycerides of 71, total cholesterol 128 , LDL of 82, HDL 32. PROCEDURES: 1. Admission chest x-ray showed hypoventilation with basilar atelectasis, but no acute cardiopulmona ry process. 2. Diagnostic heart catheterization, as mentioned above. 3. Initial electrocardiogram, as mentioned above. 4. Percutaneous coronary intervention, as mentioned above. 5. Intravascular ultrasound, as mentioned above. 6. 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 7. Echocardiogram, as mentioned above. DISCHARGE DISPOSITION: Patient will be discharged home in fair condition. He is under activity rest rictions of not lifting more than 10 pounds for the next week and no strenuous activity for the next 2 weeks. DISCHARGE MEDICATIONS: Please see discharge medication reconciliation sheet. Note, the patient has been started on dual antiplatelet therapy of aspirin at 325 mg p.o. daily and clopidogrel 75 mg p.o. daily. His home simvastatin has been discontinued, with starting on atorvastatin with goal of gettin g LDL less than 70. We will plan on having him repeat a fasting lipid panel in 6-8 weeks. Patient h as been started on carvedilol at 3.125 mg p.o. b.i.d. unfortunately due to his occasional lower blood pressure, he has not been started on an HEIDI inhibitor at this time, we plan on doing this as an outp atient once his blood pressure has improved and appears to be tolerated. Also note that patient's ho me Prilosec has been discontinued due to potential reaction with Plavix, and he has been started on P rotonix 40 mg p.o. daily. DISCHARGE INSTRUCTIONS: Post myocardial infarction percutaneous coronary intervention discharge inst ructions went over with the patient, including monitoring for signs of infection, bleeding precaution s, activity restrictions, and the importance of medication compliance, especially dual antiplatelet t herapy. At the time of discharge, patient verbalizes understanding of all instructions and has no qu estions. He has a followup appointment set in 1 week with Joanne Green, nurse practitioner at [facility], and he will follow up in [address] Young. He has been told that if any problems or concerns come up post discharge, he is to call our office or return to the hospital. TOTAL TIME SPENT ON DISCHARGE: Greater than 30 minutes. /[id number]/MODL
== END 2017-04-20 12:20 | disposition home or self-care (01) | DRG 247 ==
LOC: F2N 04:26 → F2W 04-19 15:22
PROVIDERS: ADMIT Internal Medicine Cardiovascular Disease; ATTEND Internal Medicine Cardiovascular Disease
PROC: B2111ZZ Fluoroscopy of Multiple Coronary Arteries using Low Osmolar Contrast (ICD-10-PCS; principal; 2017-04-19)
PROC: 4A023N7 Measurement of Cardiac Sampling and Pressure, Left Heart, Percutaneous Approach (ICD-10-PCS; principal; 2017-04-19)
PROC: 027034Z Dilation of Coronary Artery, One Artery with Drug-eluting Intraluminal Device, Percutaneous Approach (ICD-10-PCS; principal; 2017-04-19)
PROC: B2151ZZ Fluoroscopy of Left Heart using Low Osmolar Contrast (ICD-10-PCS; principal; 2017-04-19)
DX: I21.19 ST elevation (STEMI) myocardial infarction involving other coronary artery of inferior wall (principal); I25.10 Atherosclerotic heart disease of native coronary artery without angina pectoris; G47.33 Obstructive sleep apnea (adult) (pediatric); D64.9 Anemia, unspecified; E78.5 Hyperlipidemia, unspecified; K21.9 Gastro-esophageal reflux disease without esophagitis; N40.0 Benign prostatic hyperplasia without lower urinary tract symptoms; M48.07 Spinal stenosis, lumbosacral region
CPT/HCPCS: 96374; C1725; C1753; C1760; C1769; C1874; C1887; C9606; J0461; J0583; J1644; J2250; J3010; J3475; Q9967

== ENCOUNTER 2018-12-25 03:33 | Observation (INO) | payer OTHER | END 2018-12-26 16:50 | disposition home or self-care (01) | LOC: F2W 05:46 ==